=== PATIENT | female | born 1980 | race Caucasian/White ===

== ENCOUNTER 2019-05-08 23:53 | Inpatient (IN) ==
--- NOTE | 2019-05-09 00:23 | History & Physical Report ---
Date of Service May 09, 2019 Assessment & Plan (1) Type 1 diabetes mellitus during , antepartum: 38yo at 37.3 weeks GA. SROM. 1. Fetus: Cat1 2. Delivery: Desires repeat LTCS. Consents reviewed and signed. 3. Vitals: WNL 4. Type 1 DM: Patient has implanted monitor and is able to dose insulin prn. 5. Hypothyroid: Resume home meds 6. GBS neg (2) Previous delivery affecting , antepartum: (3) Need for rhogam due to Rh negative mother: (4) Hypothyroidism: History of Present Illness Primary Care Provider: Mynor Landers MD 38yo at 37.3 weeks GA. Present with LOF with onset of contractions following. Denies VB. Good FM. complicated by Hx LTCSx1, type 1 DM, Hypothyroidism and AMA. GBS negative. Allergies Allergy/AdvReac Type Severity Reaction Status Date / Time No Known Allergies AdvReac Unknown Verified 04/17/19 08:54 Home Medications Home Medications Medication Instructions Recorded Confirmed Type lancets 28 gauge #25 ea 09/30/18 04/17/19 History pen needle, diabetic 32 gauge x #10 ea 09/30/18 04/17/19 History 5/32" prenat.vits,luzma,tnx-mxlg-laawf 1 tab PO DAILY 09/30/18 05/09/19 History FreeStyle Lite Strips #450 ea NS 10/17/18 04/17/19 Rx acetone (urine) test #25 ea 11/03/18 04/17/19 Rx insulin glargine U-300 conc 300 See Rx Instructions SQ DAILY #6 ml 11/27/18 05/09/19 Rx unit/mL (3 mL) subcutaneous pen insulin lispro 100 unit/mL See Rx Instructions SQ .COMPLEX 11/27/18 05/09/19 Rx subcutaneous pen #30 ml Dexcom G6 Marine Firefighter #1 ea NS 12/23/18 04/17/19 Rx Dexcom G6 Sensor #3 ea NS 12/23/18 04/17/19 Rx Dexcom G6 Transmitter #1 ea NS 12/23/18 04/17/19 Rx aspirin 81 mg tablet,delayed 81 mg PO DAILY 02/06/19 05/09/19 History release levothyroxine 100 mcg tablet 100 mcg PO DAILY #30 tab NS 05/01/19 05/09/19 Rx Patient History Medical History (Updated 04/10/19 @ 10:56 by Lowell Beal Jr, MD, FACOG) Cephalopelvic disproportion (05/08/12) Diabetes mellitus type 1, uncontrolled Dyslipidemia (Acute) Gestational diabetes mellitus (05/08/12) Hypothyroidism (Acute) premature rupture of membranes (05/08/12) Type 1 diabetes mellitus (Acute) Surgical History (Updated 11/07/18 @ 13:20 by Lowell Beal Jr, MD, FACOG) S/P section (05/08/12) S/P wisdom tooth extraction Family History (Updated 10/10/18 @ 10:08 by Diana Olivier) Father Diabetes Grandmother (Maternal) Heart disease Social History (Updated 10/10/18 @ 10:24 by Diana Olivier) Preferred Language: Latvian Communication Ability: Effective Trout Farmer Required: No Beliefs That Will Affect Care: None marital status: marital status details: Alex Cabezas(38) [phone] Current Living Situation: Family Current Living Situation Comment: lives with spouse, child, dog. current occupational status: unemployed current occupation: stay at home mom Other Information That Helps Us Care for You: No Feels Safe at Home: Yes Safety Concerns: Feels Safe At This Time Smoking Status: Never smoker Second Hand Exposure: No ; Hx Alcohol Use: No Hx Substance Use: No Dental Care, Regularly: Yes Physical Exam Genitourinary: Manual OB Exam: + amniotic fluid (grossly ruptured ) clear and nitrazine positive OB Exam Monitor Tracing: + external FHT monitor used, + external uterine monitor used and + category I Results & Data Vital Signs (Past 12 Hours) Vital Signs Temp Pulse Resp BP 05/09/19 00:07 117 H 138/87 05/09/19 00:06 36.7 C 18 Coding Level of Care Code None Diagnoses Type 1 diabetes mellitus during , antepartum O24.019 Previous delivery affecting , antepartum O34.219 Need for rhogam due to Rh negative mother Z29.13 Hypothyroidism E03.9
[2019-05-09] MEDS ORDERED: CITRIC ACID/SODIUM CITRATE 15 ML UDC ONE (00:39)
[2019-05-09] MEDS ORDERED: CITRIC ACID/SODIUM CITRATE 15 ML UDC PO ONE (00:45)
[2019-05-09] MEDS ORDERED: CEFAZOLIN 2000MG 2,000 MG/15 ML SYR IV ONE (00:45)
[2019-05-09 01:15] LABS: Basophils # (auto) 0.03 K/uL (0-0.2); Basophils % (auto) 0.3 %; Eosinophils # (auto) 0.06 K/uL (0-0.5); Eosinophils % (auto) 0.7 %; Hematocrit (blood only) 36.3 % (37-47); Hemoglobin 12.5 g/dL (12.0-16.0); Immature Granulocytes # (auto) 0.12 K/uL (0.00-0.02); Immature Granulocytes % (auto) 1.3 %; Lymphocytes # (auto) 1.79 K/uL (1.2-3.4); Lymphocytes % (auto) 19.9 %; Mean Corpuscular Hemoglobin 33.7 pg (25-34); Mean Corpuscular Volume 97.8 fL (80-100); Mean Platelet Volume 9.6 fL (7.4-10.4); Monocytes # (auto) 0.86 K/uL (0.11-0.59); Monocytes % (auto) 9.5 %; Neutrophils # (auto) 6.15 K/uL (1.4-6.5); Neutrophils % (auto) 68.3 %; Platelet Count 180 K/uL (130-400); RDW Coefficient of Variation 13.6 % (11.5-14.5); RDW Standard Deviation 48.5 fL (36.4-46.3); Red Blood Count 3.71 M/uL (4.2-5.4); White Blood Count 9.01 K/uL (4.8-10.8)
[2019-05-09 01:16] LABS: Mean Corpuscular Hgb Conc 34.4 g/dL (32-36)
--- NOTE | 2019-05-09 01:19 | Anesthesiology Consultation ---
Date of Service May 09, 2019 Assessment & Plan Chart Review Chart Review: Acceptable Risk for Surgery and Patient NOT seen in Pre Admission Testing Consults Requested none ASA ASA3 Proposed Anesthesia Anesthesia Type: MAC Spinal Risk / Benefits Reviewed With: PT / POA / Parent / Guardian, Accepts Plan and Informed Consent Obtained History Surgery Operation Date: 05/09/19 00:10 Proposed Procedures p Section in LD - Jairo Rene MD Height/Weight Height: 4 ft 11 in Weight: 83.007 kg Allergies Allergy/AdvReac Type Severity Reaction Status Date / Time No Known Allergies AdvReac Unknown Verified 04/17/19 08:54 Medications Home Medications Medication Instructions Recorded Confirmed Last Taken lancets 28 gauge #25 ea 09/30/18 04/17/19 Unknown pen needle, diabetic 32 gauge x #10 ea 09/30/18 04/17/19 Unknown 32" prenat.vits,luzma,vjf-huyl-qjdlp 1 tab PO DAILY 09/30/18 05/09/19 05/08/19 FreeStyle Lite Strips #450 ea NS 10/17/18 04/17/19 Unknown acetone (urine) test #25 ea 11/03/18 04/17/19 Unknown insulin glargine U-300 conc 300 See Rx Instructions SQ DAILY #6 ml 11/27/18 05/09/19 05/08/19 unit/mL (3 mL) subcutaneous pen insulin lispro 100 unit/mL See Rx Instructions SQ .COMPLEX 11/27/18 05/09/19 05/08/19 subcutaneous pen #30 ml Dexcom G6 Boat Laborer #1 ea NS 12/23/18 04/17/19 Unknown Dexcom G6 Sensor #3 ea NS 12/23/18 04/17/19 Unknown Dexcom G6 Transmitter #1 ea NS 12/23/18 04/17/19 Unknown aspirin 81 mg tablet,delayed 81 mg PO DAILY 02/06/19 05/09/19 05/07/19 release levothyroxine 100 mcg tablet 100 mcg PO DAILY #30 tab NS 05/01/19 05/09/19 05/08/19 NPO Date Last Intake of Fluids: 05/08/19 Time Last Intake of Fluids: 22:00 Date Last Intake of Solids: 05/08/19 Time Last Intake of Solids: 18:00 Past Medical History Medical History Cephalopelvic disproportion (05/08/12) Diabetes mellitus type 1, uncontrolled Dyslipidemia (Acute) Gestational diabetes mellitus (05/08/12) Hypothyroidism (Acute) premature rupture of membranes (05/08/12) Type 1 diabetes mellitus (Acute) Exercise / Class Metabolic Activity II 4-5 Yardwork/Stairs/Walk up hill Past Family History Family History Father Diabetes Grandmother (Maternal) Heart disease Past Surgical History Surgical History S/P section (05/08/12) S/P wisdom tooth extraction Past Anesthesia History No Hx of Anesthesia Complications and No Family Hx of Anesthesia Complications History of PONV No Hx of PONV and No Hx of Motion Sickness Social History Smoking Status: Never smoker Hx Alcohol Use: No Hx Substance Use: No Review of Systems no chest pain or sob Physical Exam Vital Signs Last Vital Signs Temp 36.7 C 05/09/19 00:08 Pulse 124 H 05/09/19 01:15 Resp 18 05/09/19 00:08 BP 138/87 05/09/19 00:07 Pulse Ox 100 05/09/19 01:15 ENMT Mouth: no TMJ abnormality Thyromental Distance: > or= 3.5 Finger Breadths Mallampati Class: II Neck normal visual inspection Respiratory normal respiratory effort Auscultation: lungs clear to auscultation bilaterally Cardiovascular Rate/Rhythm: regular rate and regular rhythm Musculoskeletal Spine: normal cervical ROM Neurologic moves all extremities Psychiatric Orientation: alert and oriented x 3 Testing Laboratory Results 05/09/19 00:44
[2019-05-09] MEDS ORDERED: MoRPHine SULFATE PF 1 MG/ML 10 ML AMP/VIAL ONE (01:23)
[2019-05-09] MEDS ORDERED: fentaNYL citrate 100 MCG/2 ML VIAL ONE (01:23)
[2019-05-09] MEDS ORDERED: PHENYLEPHRINE 100MCG/ML 5ML SYR ONE (01:37)
[2019-05-09] MEDS ORDERED: OXYTOCIN 10 UNITS/ML VIAL ONE ×3 (01:37→02:00)
[2019-05-09] MEDS ORDERED: NALBUPHINE HCL INJ 10 MG/ML AMP IV PRN (01:43)
[2019-05-09] MEDS ORDERED: DiphenhydrAMINE HCL 50 MG/ML VIAL IV PRN ×2 (01:43→19:44)
[2019-05-09] MEDS ORDERED: ePHEDrine sulfate 50 MG/ML AMP IV PRN (01:43)
[2019-05-09] MEDS ORDERED: NALOXONE HCL 0.4 MG/1 ML VIAL/CARP IV PRN (01:43)
[2019-05-09] MEDS ORDERED: LACTATED RINGER'S 500 ML IV PRN (01:43)
[2019-05-09] MEDS ORDERED: KETOROLAC 30 MG/ML VIAL IV PRN ×2 (01:43→19:44)
[2019-05-09] MEDS ORDERED: NALOXONE HCL 1 MG in SODIUM CHLORIDE 0.9% 1000ML 1,000 ML IV PRN (01:43)
[2019-05-09] MEDS ORDERED: MoRPHine SULFATE PF 1 MG/ML 10 ML AMP/VIAL INT SPINAL ONE (01:43)
[2019-05-09] MEDS ORDERED: ONDANSETRON INJ 2 MG/ML 2 ML VIAL IV PRN ×2 (01:43→19:44)
[2019-05-09] MEDS ORDERED: HYDROmorphone INJ 0.5 MG/0.5 ML SYR IV PRN (01:43)
[2019-05-09] MEDS ORDERED: NALOXONE HCL 0.08 MG in SYRINGE 1.8 ML IV PRN (01:43)
[2019-05-09] MEDS ORDERED: NO NARCOTICS OR SEDATIVES SCH (01:45)
[2019-05-09] MEDS ORDERED: DC INTRASPINAL MORPHINE SCH (01:45)
[2019-05-09] MEDS ORDERED: SODIUM CHLORIDE 0.9% 1000ML 1,000 ML IV SCH (01:45)
[2019-05-09] MEDS ORDERED: METHYLERGONOVINE MALEATE 0.2 MG/ML AMP ONE ×2 (01:58→01:59)
[2019-05-09] MEDS ORDERED: ONDANSETRON INJ 2 MG/ML 2 ML VIAL ONE (02:02)
[2019-05-09] MEDS ORDERED: METHYLERGONOVINE MALEATE 0.2 MG/ML AMP IM STA (02:21)
[2019-05-09] MEDS ORDERED: DIPHTHERIA/TETANUS/PERTUSSIS 0.5 ML SYR/VIAL IM ONE (02:52)
[2019-05-09] MEDS ORDERED: SUPERCREAM 0.870% 15 GM JAR EXT PRN (02:52)
[2019-05-09] MEDS ORDERED: HYDROCORTISONE ACETATE 25 MG SUPP PR PRN (02:52)
[2019-05-09] MEDS ORDERED: SENNA 8.6 MG TAB PO PRN (02:52)
[2019-05-09] MEDS ORDERED: BENZOCAINE 20% AER SPR 82.5 GM CAN EXT PRN (02:52)
[2019-05-09] MEDS ORDERED: MAGNESIUM HYDROXIDE SUSP 30 ML UDC PO PRN (02:52)
[2019-05-09] MEDS: OXYTOCIN 20 UNITS in LACTATED RINGER'S 1,000 ML IV SCH ×2 (03:36→11:31)
--- NOTE | 2019-05-09 05:39 | Anesthesiology Progress Note ---
Date of Service May 09, 2019 Anesthesia Post Procedure Vital Signs Vital Signs: Temp Pulse Resp BP Pulse Ox 05/09/19 05:05 80 93 05/09/19 05:00 74 93 05/09/19 04:55 77 18 139/74 93 05/09/19 04:50 78 93 05/09/19 04:45 77 92 05/09/19 04:40 94 H 93 05/09/19 04:35 73 92 05/09/19 04:30 68 92 05/09/19 04:25 79 139/73 93 05/09/19 04:23 18 05/09/19 04:20 73 93 05/09/19 04:15 66 93 05/09/19 04:10 69 93 05/09/19 04:05 72 93 05/09/19 04:00 68 92 05/09/19 03:55 71 92 05/09/19 03:54 64 128/70 05/09/19 03:53 18 05/09/19 03:50 65 93 05/09/19 03:45 78 94 05/09/19 03:44 80 141/63 H 05/09/19 03:43 18 05/09/19 03:40 88 94 05/09/19 03:35 94 H 92 05/09/19 03:33 65 18 127/70 93 05/09/19 03:30 82 92 05/09/19 03:25 89 93 05/09/19 03:23 83 18 130/69 05/09/19 03:20 86 93 05/09/19 03:15 96 H 94 05/09/19 03:13 83 18 123/68 05/09/19 03:10 82 94 05/09/19 03:04 69 94 05/09/19 03:03 71 18 117/66 05/09/19 03:01 79 93 05/09/19 02:59 82 95 05/09/19 02:55 81 94 05/09/19 02:54 80 110/67 95 05/09/19 02:53 36.6 C 18 05/09/19 01:24 18 05/09/19 01:15 124 H 100 05/09/19 01:00 18 05/09/19 00:08 36.7 C 18 05/09/19 00:07 117 H 138/87 05/09/19 00:06 36.7 C 18 Transfer of Care Handoff Completed per policy Notes Mental Status: alert / awake / arousable Patient Amnestic to Procedure: Yes Nausea / Vomiting: adequately controlled Pain: adequately controlled Airway Patency, RR, SpO2: stable & adequate BP & HR: stable & adequate Hydration State: stable & adequate Neuraxial Anesthesia: was administered and sensory block is resolving Anesthetic Complications: no major complications apparent and Pt Satisfied with anesthetic care
[2019-05-09] MEDS ORDERED: GLUCOSE 40% GEL 15 GM TUBE PO PRN (06:15)
[2019-05-09] MEDS ORDERED: GLUCOSE 10 TABS/TUBE PO PRN (06:15)
[2019-05-09] MEDS ORDERED: GLUCAGON FOR INJ 1 MG VIAL IM PRN (06:15)
[2019-05-09] MEDS ORDERED: CARBOHYDRATES FOR HYPOGLYCEMIA PO PRN (06:15)
[2019-05-09] MEDS ORDERED: DEXTROSE 50% 50 ML SYRINGE IV PRN (06:15)
[2019-05-09] MEDS: LEVOTHYROXINE SODIUM 100 MCG TABLET PO SCH (07:36)
[2019-05-09] MEDS: INSULIN LISPRO 100 UNITS/ML PEN SQ SCH ×3 (08:00→16:54)
[2019-05-09] MEDS: SIMETHICONE 80 MG CHEW PO SCH ×4 (08:32→21:18)
[2019-05-09] MEDS: FERROUS SULFATE 325 MG TAB PO SCH (08:32)
[2019-05-09] MEDS: DOCUSATE SODIUM 100 MG CAP PO SCH ×2 (08:32→21:18)
[2019-05-09] MEDS: PRENATAL VITAMIN 1 TAB PO SCH (08:32)
--- NOTE | 2019-05-09 09:40 | Operative Report (OR) ---
DATE OF OPERATION: 05/09/2019 PROCEDURE: Repeat low transverse section with bilateral tubal ligation. SURGEON: Dr. Jairo Rene. PREOPERATIVE DIAGNOSES: 1. Single intrauterine at 37 weeks 6 days gestational age. 2. Spontaneous rupture of membranes. 3. Desired permanent sterilization. 4. Hypothyroidism. 5. Type 1 diabetes. POSTOPERATIVE DIAGNOSES: 1. Single intrauterine at 37 weeks 6 days gestational age. 2. Spontaneous rupture of membranes. 3. Desired permanent sterilization. 4. Hypothyroidism. 5. Type 1 diabetes. 6. Status post delivery. ESTIMATED BLOOD LOSS: 600 mL. DRAINS: Rea catheter. FLUIDS: Continuous lactated ringer. URINE OUTPUT: Via Rea catheter. COMPLICATIONS: None. FINDINGS: A viable male with weight of 10 pounds and 1/2 ounce and Apgars of 8 and 9 at 1 and 5 minutes respectively. Bilateral tubal segments removed. DESCRIPTION OF PROCEDURE: The patient was taken to the Operating Room after consents were ensured. Upon presentation, she was properly identified. A spinal anesthesia was obtained without difficulty. The patient was then placed in dorsal supine position with left lateral tilt. The patient was then prepped and draped in normal sterile fashion. Preprocedure timeout was performed. After appropriate surgical levels were ensured, a Pfannenstiel incision was then made with a knife at the location of her prior . This was carried down to underlying fascia with the Bovie. The fascia was then nicked at the midline with the knife. The fascia was then extended laterally in each direction with pickups and Garza scissors. The superior aspect of the fascia was then grasped with Kochers x2, elevated off the underlying rectus muscles using blunt dissection and the knife. The lower aspect of the fascia was then grasped with Kochers x2 and elevated off the underlying rectus muscle using blunt dissection. The midline was then entered bluntly and placed on stretch to provide adequate room for delivery. The uterus was noted to be midline. A bladder blade was inserted and a bladder flap was created. A low transverse uterine incision was then made with a knife. The head of the was in cephalic position, delivered through the hysterotomy without difficulty. Body and shoulders quickly followed and the showed signs of vigorous soon after delivery. The cord was then double clamped and cut. was taken to the waiting nursery staff for evaluation. Cord blood was then obtained. Attention was then turned to deliver the placenta, which was delivered intact, 3-vessel cord, gentle cord traction. The uterus was then exteriorized and was wrapped in a wet lap and several passes were made to remove any remaining membranes. The hysterotomy was then reapproximated with 0 Vicryl in a continuous running locked stitch. Methergine was then injected directly into the uterus due to the large for gestational age and concern for hemorrhage. A second imbricating layer was then performed using 0 Vicryl. A tubal ligation was then performed using the [place] method starting with the right tube and then duplicated on the left. The posterior cul-de-sac was cleaned of clots and debris and the uterus was returned to the maternal abdomen. The hysterotomy and tubal pedicles were inspected and noted to be intact with continued hemostasis. Right and left pericolic gutters were cleaned of clots and debris and space of Retzius was cleaned of clots and debris. The muscles and fascial layers were inspected and noted to be hemostatic. The fascia was then reapproximated with 0 Vicryl continuous running stitch. The subcutaneous layers were inspected and noted to be hemostatic. The subQ layer was reapproximated with 2-0 plain in a continuous running stitch. The skin was reapproximated with 3-0 Vicryl on a Chuck needle. Dermabond was placed on top. Needle, sponge and instrument counts were correct at the completion of the case with mother and were stable in immediate post delivery period. I attest to the content of the Intraoperative Record and any orders documented therein. Any exception s are noted below.
[2019-05-09] MEDS ORDERED: LACTATED RINGER'S 1,000 ML IV SCH (19:15)
[2019-05-09] MEDS ORDERED: PROMETHAZINE HCL 25 MG in SODIUM CHLORIDE 0.9% 50 ML IV PRN (19:44)
[2019-05-09] MEDS ORDERED: OXYCODONE/ACETAMINOPHEN 5mg/325mg TAB PO PRN (19:44)
[2019-05-09] MEDS: IBUPROFEN 600 MG TAB PO PRN (20:14)
[2019-05-09] MEDS ORDERED: TOUJEO SQ SCH (21:00)
[2019-05-10] MEDS: IBUPROFEN 600 MG TAB PO PRN ×4 (02:54→22:15)
[2019-05-10] MEDS: LEVOTHYROXINE SODIUM 100 MCG TABLET PO SCH (06:20)
[2019-05-10 06:22] LABS: Basophils # (auto) 0.02 K/uL (0-0.2); Basophils % (auto) 0.2 %; Eosinophils # (auto) 0.08 K/uL (0-0.5); Eosinophils % (auto) 0.7 %; Hematocrit (blood only) 32.8 % (37-47); Hemoglobin 11.2 g/dL (12.0-16.0); Immature Granulocytes # (auto) 0.08 K/uL (0.00-0.02); Immature Granulocytes % (auto) 0.7 %; Lymphocytes # (auto) 1.66 K/uL (1.2-3.4); Lymphocytes % (auto) 14.6 %; Mean Corpuscular Hemoglobin 33.2 pg (25-34); Mean Corpuscular Hgb Conc 34.1 g/dL (32-36); Mean Corpuscular Volume 97.3 fL (80-100); Mean Platelet Volume 9.3 fL (7.4-10.4); Monocytes # (auto) 0.57 K/uL (0.11-0.59); Neutrophils # (auto) 8.97 K/uL (1.4-6.5); Neutrophils % (auto) 78.8 %; Platelet Count 178 K/uL (130-400); RDW Coefficient of Variation 14.1 % (11.5-14.5); Red Blood Count 3.37 M/uL (4.2-5.4); White Blood Count 11.38 K/uL (4.8-10.8)
--- NOTE | 2019-05-10 08:40 | Obstetrical Progress Note ---
Date of Service May 10, 2019 Assessment & Plan (1) : POD#1 doing well. No concerns. Ambulating, eating/drinking, urinating, passing gas ok. Continue routine postop care. Subjective Ambulation: ambulating normally Voiding: no voiding problems Diet Tolerance:: regular diet Lochia:: Moderate Review of Systems All systems reviewed & are unremarkable except as noted in HPI & below Physical Exam Constitutional WD/WN, vitals as above no acute distress Respiratory normal respiratory effort Cardiovascular Rate/Rhythm: regular rate and regular rhythm Gastrointestinal (Abdomen) Inspection/Auscultation: abdomen normal to inspection; abdomen not distended Percussion/Palpation: abdomen soft Genitourinary OB Exam Abdomen: + fundal height Fundus: + firm; not tender Results & Data Vital Signs (Past 12 Hours) Vital Signs Temp Pulse Resp BP 05/10/19 02:50 36.6 C 79 18 113/68 05/09/19 23:00 36.6 C 18 122/76
[2019-05-10] MEDS: FERROUS SULFATE 325 MG TAB PO SCH (08:45)
[2019-05-10] MEDS: SIMETHICONE 80 MG CHEW PO SCH ×3 (08:46→18:04)
[2019-05-10] MEDS: PRENATAL VITAMIN 1 TAB PO SCH (08:46)
[2019-05-10] MEDS: DOCUSATE SODIUM 100 MG CAP PO SCH ×2 (08:46→22:00)
--- NOTE | 2019-05-10 11:06 | Anesthesiology Progress Note ---
Date of Service May 10, 2019 Anesthesia Post Procedure Vital Signs Vital Signs: Temp Pulse Pulse Resp BP Pulse Ox 05/10/19 09:00 36.4 C L 102 H 16 125/80 97 05/10/19 02:50 36.6 C 79 18 113/68 05/09/19 23:00 36.6 C 18 122/76 05/09/19 19:30 36.5 C 89 18 127/66 98 05/09/19 19:20 18 98 05/09/19 18:30 18 97 05/09/19 17:30 18 97 05/09/19 16:30 20 98 05/09/19 15:30 20 97 05/09/19 15:05 36.3 C L 72 18 122/77 98 05/09/19 14:30 20 97 05/09/19 13:30 18 98 05/09/19 12:30 16 95 05/09/19 11:35 36.6 C 67 14 128/75 95 05/09/19 11:30 18 97 Pain Intensity Bilateral Lower Abdomen: Pain Intensity: 3 Transfer of Care Handoff Completed per policy Notes Mental Status: alert / awake / arousable Patient Amnestic to Procedure: Yes Nausea / Vomiting: adequately controlled Pain: adequately controlled Airway Patency, RR, SpO2: stable & adequate BP & HR: stable & adequate Hydration State: stable & adequate Neuraxial Anesthesia: was administered and sensory block resolved Anesthetic Complications: no major complications apparent and Pt Satisfied with anesthetic care
[2019-05-10] MEDS ORDERED: bisacodyL 5 MG TABEC PO SCH (20:00)
[2019-05-11] MEDS ORDERED: bisacodyL 10 MG SUPP PR PRN (02:52)
[2019-05-11] MEDS: SIMETHICONE 80 MG CHEW PO SCH ×3 (06:09→11:53)
--- NOTE | 2019-05-11 06:23 | Obstetrical Progress Note ---
Date of Service <Leonora Beyer DO - Last Filed: 05/11/19 06:52> May 11, 2019 Assessment & Plan <Leonora Beyer DO - Last Filed: 05/11/19 06:52> (1) Encounter for care and examination after delivery: 38 yo F POD#2 from repeat C section at 37.3 weeks. Doing well this AM and without complaints. - For discharge today. - Following discharge will have 6 [address] follow up with Dr. Martinez. - Went over discharge instructions and answered all patient questions. Subjective <Leonora Beyer - Last Filed: 05/11/19 06:52> 38 yo female ; POD # 2 following section delivery at 37.3weeks; doing well this AM; no abdominal cramping/pain; voiding well, passing gas but no BM; tolerating meals overnight, able to ambulate some within the room. Desires discharge today. Review of Systems Constitutional: denies fever, chills, sweats, headache Respiratory: denies SOB, difficulty breathing Cardiac: denies CP, chest palpitations, chest pressure Breast: denies breast pain : denies dysuria Physical Exam <Leonora Beyer - Last Filed: 05/11/19 06:52> General: patient is alert and oriented, in NAD Cardiac: +S1/S2, no murmurs rubs or gallops Respiratory: lungs CTA b/l, anteriorly and posteriorly, no wheezes rales or rhonchi, no increased work of breathing, symmetric chest rise, no respiratory distress Abdomen: soft, NT, +bowel sounds Uterus: uterine fundus firm, palpable below the umbilicus. Incision intact, non- tender, non-erythematous, no weeping from incision site Lower Extremities: no LE edema or swelling, no deep calf pain, Mike's sign negative b/l Results & Data <Leonora Beyer - Last Filed: 05/11/19 06:52> Vital Signs (Past 12 Hours) Vital Signs Temp Pulse Pulse Resp BP 05/10/19 23:26 36.4 C L 75 18 127/77 05/10/19 19:46 36.6 C 94 H 18 143/65 H Laboratory Results Laboratory Results - last 24 hr 05/10/19 05/11/19 14:53 05:59 Hgb 12.2 Hct 35.9 L POC Glucose 146 H Medications Administered Current Medications Benzocaine (Dermoplast Pain Relieving [place]) 1 appln EXT UD PRN PRN Reason: use on skin as needed Stop: 06/08/19 02:51 Bisacodyl (Dulcolax) 10 mg [place] PRN PRN PRN Reason: Constipation Stop: 06/10/19 02:51 Cocaine HCl (Supercream 0.870%) 1 gm EXT UD PRN PRN Reason: hemmorrhoidal inflammation Stop: 05/23/19 02:51 Dextrose (Dextrose 50%) 25 - 50 ml IV UD PRN; Protocol PRN Reason: Hypoglycemia Protocol Stop: 06/08/19 06:14 Diphenhydramine HCl (Benadryl Capsule) 25 mg PO QID PRN PRN Reason: Itching Stop: 06/08/19 19:43 Diphenhydramine HCl (Benadryl) 25 mg IV QID PRN PRN Reason: Itching Stop: 06/08/19 19:43 Last Admin: 05/09/19 06:59 Dose: 25 mg Documented by: Docusate Sodium (Colace) 100 mg PO DAILY@08,21 [facility] Stop: 06/08/19 07:59 Last Admin: 05/10/19 22:00 Dose: 100 mg Documented by: Ferrous Sulfate (Feosol) 325 mg PO DAILY@08 [facility] Stop: 06/08/19 07:59 Last Admin: 05/10/19 08:45 Dose: 325 mg Documented by: Glucagon (Glucagen) 1 mg IM UD PRN; Protocol PRN Reason: Hypoglycemia Protocol Stop: 06/08/19 06:14 Glucose (Glucose 40%) 15 - 30 gm PO UD PRN; Protocol PRN Reason: Hypoglycemia Protocol Stop: 06/08/19 06:14 Glucose (Dex4 Glucose) 4 - 8 tabs PO UD PRN; Protocol PRN Reason: Hypoglycemia Protocol Stop: 06/08/19 06:14 Hydrocortisone (Anusol Hc) 25 mg [place] BID PRN PRN Reason: Hemorrhoids Stop: 06/08/19 02:51 Lactated Ringer's (Lr) 1,000 mls @ 125 mls/hr IV .Q8H [facility] Stop: 06/08/19 19:14 Promethazine HCl 25 mg/ Sodium (Chloride) 51 mls @ 204 mls/hr IV Q4H PRN PRN Reason: Nausea And Vomiting Stop: 06/08/19 19:43 Ibuprofen (Motrin) 600 mg PO Q4H PRN PRN Reason: Pain Stop: 06/08/19 02:51 Last Admin: 05/10/19 22:15 Dose: 600 mg Documented by: Insulin Human Lispro (Humalog Kwikpen U-100) 0 units SQ AC [facility] Stop: 06/08/19 07:29 Last Admin: 05/09/19 16:54 Dose: Not Given Documented by: Ketorolac Tromethamine (Toradol) 30 mg IV Q6H PRN PRN Reason: Pain Stop: 05/14/19 19:43 Levothyroxine Sodium (Synthroid) 100 mcg PO DAILYBB [facility] Stop: 06/08/19 06:29 Last Admin: 05/11/19 06:35 Dose: 100 mcg Documented by: Magnesium Hydroxide (Milk Of Magnesia) 30 ml PO HS PRN PRN Reason: Constipation Stop: 06/08/19 02:51 Miscellaneous (Carbohydrates For Hypoglycemia) 15 - 30 gm PO UD PRN PRN Reason: Hypoglycemia Treatment Stop: 06/08/19 06:14 Toujeo~Non-Formulary (Patient's Own Med) 1 ea SQ HS [facility] Stop: 06/08/19 20:59 Last Admin: 05/09/19 21:19 Dose: Not Given Documented by: Ondansetron HCl (Zofran) 4 mg IV Q4H PRN PRN Reason: Nausea And Vomiting Stop: 06/08/19 19:43 Oxycodone/Acetaminophen (Percocet 5mg/325mg) 1 - 2 tab PO Q4H PRN PRN Reason: Pain Stop: 05/23/19 19:43 Prenat Multivit/[place]/Iron/Folic Ac ( Vitamin) 1 tab PO DAILY@08 [facility] Stop: 06/08/19 07:59 Last Admin: 05/10/19 08:46 Dose: 1 tab Documented by: Sennosides (Senokot) 17.2 mg PO HS PRN PRN Reason: Constipation Stop: 06/08/19 02:51 Simethicone (Mylicon) 80 mg PO DAILY@08,,17,21 [facility] Stop: 06/08/19 07:59 Last Admin: 05/11/19 06:09 Dose: 80 mg Documented by: <Camila Martinez DO - Last Filed: 05/11/19 08:37> Co-Signing Physician Notes Resident Physician Supervision Note: I interviewed and examined the patient. Discussed with Dr. Beyer and agree with findings and plan as documented in the note. Any exceptions or clarifications are listed here: POD#2 doing well, no concerns. DC home. Followup office 6w. Instructions reviewed. Declines offer for Rx opioid pain medications, as she has done well with motrin and tylenol here. Documented By: Camila Martinez DO Resident Activity Tracking <Leonora Beyer DO - Last Filed: 05/11/19 06:52> Resident Involvement: Resident Care Provided Care Provided: OB Delivery
[2019-05-11 06:24] LABS: Hematocrit (blood only) 35.9 % (37-47); Hemoglobin 12.2 g/dL (12.0-16.0)
[2019-05-11] MEDS: LEVOTHYROXINE SODIUM 100 MCG TABLET PO SCH (06:35)
[2019-05-11] MEDS: IBUPROFEN 600 MG TAB PO PRN ×2 (08:16→11:53)
[2019-05-11] MEDS: FERROUS SULFATE 325 MG TAB PO SCH (08:16)
[2019-05-11] MEDS: DOCUSATE SODIUM 100 MG CAP PO SCH (08:16)
[2019-05-11] MEDS: PRENATAL VITAMIN 1 TAB PO SCH (08:17)
--- NOTE | 2019-05-13 13:08 | Discharge Summary (DS) ---
PROCEDURES WHILE ADMITTED: Repeat low transverse section with bilateral tubal ligation. HOSPITAL COURSE: The patient was admitted on 05/09/2019 with spontaneous rupture of membranes with a planned repeat section and bilateral tubal ligation. The patient was admitted at that time, and consents were reviewed and signed for the procedure. Repeat low transverse section with tubal ligation was performed without complication. The patient recovered well postoperatively and remained in house for 2 days . At that time, the patient was requesting discharge and was stable for discharge. Both written and verbal discharge instructions were provided to the patient and all questions were answered to the patient's satisfaction. The patient will follow up in 6 weeks for standard visit or earlier if needed.
== END 2019-05-11 13:35 | disposition home or self-care (01) | DRG 785 ==
LOC: 4S1 23:53 → OPB 23:53 → 4S1 05-09 00:32 → 4S2 05-09 05:51
PROC: M.PPTLD (2019-05-09 00:10)